=== PATIENT | male | born 1960 | race Caucasian/White ===

== ENCOUNTER 2022-03-10 16:43 | Outpatient (REF) | payer MEDICARE, MEDICAID, SELFPAY ==
--- NOTE | ~2022-03-10 | CT_ITS ---
EXAMINATION: CT MAXILLOFACIAL WITHOUT CONTRAST CLINICAL INFORMATION: Sinus polyp. COMPARISON: None. TECHNIQUE: Multidetector helical imaging was performed in the axial plane with generation of coronal and sagittal reformatted images. This CT examination was performed using dose optimization techniques as appropriate, variously including the following: *Automated exposure control *Adjustment of mA and/or kV according to patient size (this includes techniques or standardized protocols for targeted exams where dose is matched to indication/reason for exam; i.e. extremities or head) *Use of iterative reconstruction technique DLP: 138 mGy-cm. FINDINGS: The frontal sinuses are not pneumatized. There is minimal ethmoid mucosal thickening. The sphenoid sinuses and sphenoethmoidal recesses are clear. There is trace mucosal thickening along the left maxillary sinus floor and a 1.3 cm mucosal retention cyst. The bilateral ethmoidal infundibula are patent. There are sigmoid deviation nasal septum which is bowed towards the right anteriorly. The ethmoid roofs are symmetric. The lamina papyracea are intact. The carotid impressions are covered with bone. No maxillary periapical disease is seen. The mastoid air cells and visualized middle ear cavities are well aerated. The orbits are normal. The TMJs are unremarkable. The imaged portions of the brain demonstrate no acute abnormality. CT/CT sinus wo IV con IMPRESSION: Minimal ethmoid mucosal thickening. Trace mucosal thickening along the left maxillary sinus floor with a small mucosal retention cyst. No fluid levels. Sigmoid deviation of the nasal septum.
== END 2022-03-10 16:44 | disposition home or self-care (01) ==
LOC: HO.CT 16:43
PROVIDERS: Visit Provider Otolaryngology
DX: J33.8 Other polyp of sinus (principal)
CPT/HCPCS: 70486